=== PATIENT | female | born 2000 | race Caucasian/White ===

== ENCOUNTER 2019-01-08 15:50 | Emergency (ER) | payer BC, SELFPAY ==
[2019-01-08] MEDS ORDERED: Cephalexin 500 MG CAP ONE (16:39)
== END 2019-01-08 16:50 | disposition home or self-care (01) ==
LOC: BURERS 15:50
DX: S81.812A Laceration without foreign body, left lower leg, initial encounter (principal); W22.8XXA Striking against or struck by other objects, initial encounter
CPT/HCPCS: 12002